=== PATIENT | female | born 2000 | race Caucasian/White ===

== ENCOUNTER 2018-06-01 21:58 | Emergency (ER) | payer BC, OTHER ==
--- NOTE | 2018-06-01 22:07 | EDPHY ---
H & P Stated Complaint: states worst headache I've ever had, mild nausea, partida started today Time Seen by Provider: 06/01/18 22:06 HPI/ROS: HPI CHIEF COMPLAINT: Headache. HISTORY OF PRESENT ILLNESS: Patient is a 17-year-old female, she presents emergency room by private vehicle with her mom for headache. She describes this throbbing sensation rather sharp across the front of her head. Started around 1:00 a.m. This afternoon slowly progressed. It was not a sudden-onset. Was not thunderclap headache. She has nausea but no vomiting. She denies any focal weakness numbness or tingling. Denies fever. Patient does not really have a headache history. She cannot remember the last time she had headache it is never had headache like this. She denies any neck pain or neck stiffness, denies fever. She does report to me that she was recently [place]. She went diving. She states she went down 60 ft. She denies any other joint pain, muscle aches, shortness of breath or chest pain. She states that she went diving 60 ft down on Thursday, and and over again on Thursday but waited 24 hr to fly back to [place]. She arrives to the emergency room complaining of a 10/10 frontal throbbing headache. Patient denies any recent illness specifically denies recent viral prodrome or fever. Denies any focal weakness or numbness or tingling. Denies pain anywhere else except her head. Her neuro exam is unremarkable on arrival here to the emergency room. Past Medical History: Denies significant medical history except for thyroid disease Past Surgical History: Denies significant surgical history Social History: Denies drugs alcohol tobacco. Family History: Noncontributory ROS REVIEW OF SYSTEMS: 10 Systems were reviewed and negative with the exception of the elements mentioned in the history of present illness. Exam Constitutional triage nursing summary reviewed, vital signs reviewed, awake/ alert. Eyes normal conjunctivae and sclera, EOMI, PERRLA. HENT no meningeal signs on exam, normal inspection, atraumatic, moist mucus membranes, no epistaxis, neck supple/ no meningismus, no raccoon eyes. Respiratory clear to auscultation bilaterally, normal breath sounds, no respiratory distress, no wheezing. Cardiovascular rate normal, regular rhythm, no murmur, no edema, distal pulses normal. Gastrointestinal soft, non-tender, no rebound, no guarding, normal bowel sounds, no distension, no pulsatile mass. Genitourinary no CVA tenderness. Musculoskeletal no midline vertebral tenderness, full range of motion, no calf swelling, no tenderness of extremities, no meningismus, good pulses, neurovascularly intact. Skin pink, warm, & dry, no rash, skin atraumatic. Neurologic unremarkable neurological exam, no focal neuro deficit on exam awake , alert and oriented x 3, AAOx3, moves all 4 extremities equally, motor intact, sensory intact, CN II-XII intact, normal cerebellar, normal vision, normal speech. Psychiatric normal mood/affect. Heme/Lymph/Immune no lymphadenopathy. Differential Diagnosis: Includes but is not limited to in a particular order migraine headache, tension headache, cluster headache, intracranial bleed, tumor , encephalitis, meningitis, bends Medical Decision Making: Plan for this patient IV establishment IV fluid bolus , basic labs, CT scan head without contrast, migraine cocktail and re-evaluate. Patient here in emergency room does appear well nontoxic however complains of a severe frontal throbbing headache gradual in onset. She has a normal focal neurological exam on exam Re-evaluation: CT scan head without contrast called to me by Dr. Storey negative for acute bleed. Unremarkable CT head Patient re-evaluated 2308 feeling better after migraine cocktail IV fluids and IV pain medicine. Long discussion with the patient and mom at bedside. She reports to me that she did 5 dives, 2 dives that were at 60-65 ft, the other dives were at 20 ft. She did this over the weekend. She states her last I have was yesterday and she surface around 9:30 a.m.. She then got on a commercial airline jet at 11:00 a.m. The next day. Slightly over 24 hr. 2320: I spoke with hyperbaric physician Dr. Rafa Tilley, discussed case in detail about this patient is at risk for decompression sickness and ongoing headache which has improved he felt that based on her exam, clinical picture, how well she is doing he would not diaper. He would serve her here for few more hours given that she is improving, high-flow oxygen, IV fluids supportive care and re-evaluate. If the patient continues do well he feels that she can be safely discharged from the emergency room. He did recommend that she does not get on a flight tomorrow. 2334: Patient re-evaluated this time continues do well placed on oxygen. Received IV fluids and a migraine cocktail much improved. Headache almost gone. 0304: Patient re-evaluated this time resting comfortably her headache is completely gone. On re-examination her neurological exam is unremarkable. She has no focal neuro deficit. Headache has resolved. Patient is asking to go home to her hotel she is here with her mom there due to fly to [place] tomorrow to meet up with her dad I did highly recommend they do not fly tomorrow. Is possible there is a migraine headache versus decompression sickness causing her headache. I did discuss the case with the hyperbaric physician Dr. Tilley, down at [facility], he did not feel that the patient needed hyperbaric chamber given how well she is doing her headache is completely resolved with a migraine cocktail, she was placed on high-flow oxygen for a prolonged period of time, additionally given IV fluids she has done very well. I do not believe she has meningitis encephalitis she has no neck pain neck stiffness, no fever, white count normal, her headache was gradual in onset throbbing frontal. I think it is unlikely for encephalitis meningitis and I do not believe she needs a spinal tap. This is been discussed at length with her mom and patient at bedside. They would like to go home her neurological exam is unremarkable. I do recommend that they do not fly tomorrow and rest. Additionally return precautions discussed they understand return emergency room she develops worsening headache, fever, vomiting, not doing well. Return precautions discussed with the patient mom they are comfortable this plan comfortable going home. She has been observed in the emergency room for over 5 hr. Patient at 3:30 a.m. Was able to ambulate well throughout the emergency room and p.o. Challenge well without any recurrence of her headache and feels well. Her neurological exam is unremarkable she would like to go home. We discussed return precautions Source: Patient - Medical/Surgical History Hx Asthma: No Hx Chronic Respiratory Disease: No Hx Diabetes: No Hx Cardiac Disease: No Hx Renal Disease: No Hx Cirrhosis: No Hx Alcoholism: No Hx HIV/AIDS: No Hx Splenectomy or Spleen Trauma: No Other PMH: hypothyroid - Social History Smoking Status: Never smoked Constitutional: Initial Vital Signs Temperature (C) 36.5 C 06/01/18 22:01 Heart Rate 74 06/01/18 22:01 Respiratory Rate 16 06/01/18 22:01 Blood Pressure 136/84 H 06/01/18 22:01 O2 Sat (%) 97 06/01/18 22:01 O2 Delivery Mode Room Air O2 (L/minute) 10 Allergies/Adverse Reactions: Sulfa (Sulfonamide Antibiotics) Allergy (Verified 06/01/18 22:05) Home Medications: Medication Instructions Recorded Levothyroxine 06/01/18 Medical Decision Making - Data Points Laboratory Results: Laboratory Results 06/01/18 22:29 06/01/18 22:29 Medications Given: Discontinued Medications Dexamethasone (Decadron Injection) 10 mg IVP EDNOW ONE Stop: 06/01/18 22:15 Last Admin: 06/01/18 22:26 Dose: 10 mg Diphenhydramine HCl (Benadryl Injection) 50 mg IVP EDNOW ONE Stop: 06/01/18 22:15 Last Admin: 06/01/18 22:26 Dose: 50 mg Sodium Chloride (Ns) 1,000 mls @ 0 mls/hr IV ONCE ONE; Wide Open PRN Reason: Protocol Stop: 06/01/18 22:15 Last Admin: 06/01/18 22:26 Dose: 1,000 mls Sodium Chloride (Ns) 1,000 mls @ 0 mls/hr IV ONCE ONE PRN Reason: Wide Open Stop: 06/01/18 23:36 Last Admin: 06/01/18 23:46 Dose: 1,000 mls Ketorolac Tromethamine (Toradol) 30 mg IVP EDNOW ONE Stop: 06/01/18 22:15 Last Admin: 06/01/18 22:32 Dose: 30 mg Metoclopramide HCl (Reglan Injection) 10 mg IVP EDNOW ONE Stop: 06/01/18 22:15 Last Admin: 06/01/18 22:26 Dose: 10 mg Ondansetron HCl (Zofran) 4 mg IVP EDNOW ONE Stop: 06/01/18 22:15 Last Admin: 06/01/18 22:26 Dose: 4 mg Departure - Departure Disposition: Home, Routine, Self-Care Clinical Impression: Headache Qualifiers: Headache type: unspecified Headache chronicity pattern: acute headache Intractability: not intractable Qualified Code(s): R51 - Headache Condition: Good Instructions: Acute Headache (ED) Additional Instructions: 1. Rest 2. Stay well-hydrated drink lots of fluids. 3. I would not fly. 4. Please return to the emergency room if he develops worsening pain, headache, vomiting, fever, not doing well. Referrals: [facility] BR[facility] [Other] - As per Instructions Stand Alone Forms: Airline Excuse
[2018-06-01] MEDS ORDERED: KETOROLAC 30 MG/1 ML SDV IVP ONE (22:14)
[2018-06-01] MEDS ORDERED: METOCLOPRAMIDE 10 MG/2 ML VIAL IVP ONE (22:14)
[2018-06-01] MEDS ORDERED: ONDANSETRON 4 MG/2 ML VIAL IVP ONE (22:14)
[2018-06-01] MEDS ORDERED: DEXAMETHASONE 10 MG/ML VIAL IVP ONE (22:14)
[2018-06-01] MEDS ORDERED: NS 1,000 ML IV ONE ×2 (22:14→23:35)
[2018-06-01 22:36] LABS: PLATELET COUNT 284 10^3/uL (150-400)
[2018-06-02 03:45] VITALS: BP 118/67
== END 2018-06-02 03:44 | disposition home or self-care (01) ==
DX: R51 Headache (principal); E86.9 Volume depletion, unspecified
CPT/HCPCS: 96374; J1100; J1200; J1885; J2405; J2765